=== PATIENT | male | born 1980 | race Caucasian/White ===

== ENCOUNTER → 2017-12-17 | Emergency (ER) | payer OTHER ==
[~2017-12-17] VITALS: Ht 175.3 cm; Wt 79.4 kg
== END | disposition home or self-care (01) ==
LOC: ER 19:15
DX: T78.1XXA Other adverse food reactions, not elsewhere classified, initial encounter (principal); R21 Rash and other nonspecific skin eruption

== ENCOUNTER 2018-01-31 23:51 | Emergency (ER) | payer OTHER ==
[~2018-01-31] VITALS: Ht 180.3 cm; Wt 81.6 kg
[2018-01-31] MEDS ORDERED: NEURONTIN300 MG PO (23:56)
[2018-01-31] MEDS ORDERED: TENCON 50-3251 EACH PO (23:56)
[2018-01-31] MEDS ORDERED: PRILOSEC OTC20 MG PO (23:56)
[2018-02-01] MEDS ORDERED: ALBUTEROL2.5 MG/3 M IH (06:43)
[2018-02-01] MEDS ORDERED: MEDROLPACK PO (06:43)
== END 2018-02-01 07:28 | disposition home or self-care (01) ==
LOC: ER 23:51
DX: R06.02 Shortness of breath (principal); T59.811A Toxic effect of smoke, accidental (unintentional), initial encounter; Y92.89 Other specified places as the place of occurrence of the external cause